=== PATIENT | female | born 1980 | race Caucasian/White ===

== ENCOUNTER 2020-05-03 15:50 | Emergency (ER) | payer OTHER ==
[~2020-05-03 15:50] MED LIST: HYDROmorphone 1 MG/ML Syringe IVPUSH ONE; Ondansetron 4 MG/2 ML SDV IVPUSH ONE; Sodium Chloride 0.9% 10 ML Syringe FLUSH PRN
--- NOTE | 2020-05-03 16:08 | EDM.PDOC ---
"ED HPI GENERAL MEDICAL PROBLEM - General Chief Complaint: Abdominal Pain Time Seen by Provider: 05/03/20 15:59 Source of Information: Reports: Patient, RN, RN Notes Reviewed History Limitations: Reports: No Limitations - History of Present Illness INITIAL COMMENTS - FREE TEXT/NARRATIVE: Patient presents to ED via personal vehicle with complaints of RLQ pain. She states the pain began about 1130 this morning as a dull ache which continued to progress to a sharp stabbing pain over the course of several hours. She denies experiencing pain like this before. It does not radiate and is isolated to her RLQ. She denies nausea, vomiting, fevers, shaking chills, or recent illness. She denies hematuria, dysuria, melena, or changes to bowel or bladder habits. She denies any recent changes to her diet. The patient states she has not taken any medications to try to alleviate this pain, and notes it worsens when she applies pressure to the area. Patient reports she is on Depo Provera with a LMP of 10/5 Right Lower Abdomen Pain Score (Numeric/FACES): 9 - Related Data Allergies Allergy/AdvReac Type Severity Reaction Status Date / Time No Known Allergies Allergy Verified 05/03/20 16:33 Home Meds: Home Meds . [No Known Home Meds] 05/03/20 [History] ED ROS GENERAL - Review of Systems Review Of Systems: Comprehensive ROS is negative, except as noted in HPI. ED EXAM, GI/ABD - Physical Exam Exam: See Below Exam Limited By: No Limitations General Appearance: Alert, Moderate Distress Head: Atraumatic, Normocephalic Neck: Normal Inspection, Supple, Non-Tender, Full Range of Motion Respiratory/Chest: No Respiratory Distress, Lungs Clear, Normal Breath Sounds, No Accessory Muscle Use, Chest Non-Tender Cardiovascular: Normal Peripheral Pulses, Regular Rate, Rhythm, No Edema, No Gallop, No JVD, No Murmur, No Rub GI/Abdominal Exam: Soft, No Distention, No Mass, Guarding, Rebound, Tender (To right lower quadrant), Abnormal Bowel Sounds (Hyperactive ) (Female) Exam: Deferred Rectal (Female) Exam: Deferred Back Exam: Normal Inspection, Full Range of Motion. No: CVA Tenderness (L), CVA Tenderness (R) Neurological: Alert, Oriented, CN II-XII Intact, Normal Cognition, No Motor/Sensory Deficits Skin Exam: Warm, Dry, Intact, Normal Color Course - Vital Signs Last Recorded V/S: Last Vital Signs Temp 98 F 05/03/20 15:49 Pulse 78 05/03/20 15:49 Resp 20 05/03/20 15:49 BP 150/85 H 05/03/20 15:49 Pulse Ox 100 05/03/20 15:49 - Orders/Labs/Meds Orders: Active Orders 24 hr Category Date Time Status Peripheral IV Care [RC] . DIRECTED Care 05/03/20 15:45 Active Ketorolac [Toradol] Med 05/03/20 17:16 Once 30 mg IVPUSH ONETIME ONE Sodium Chloride 0.9% [Saline Flush] Med 05/03/20 15:44 Active 10 ml FLUSH ASDIRECTED PRN Peripheral IV Insertion Adult [OM.PC] Stat Oth 05/03/20 15:45 Ordered Medication Orders Ketorolac Tromethamine (Toradol) 30 mg IVPUSH ONETIME ONE Stop: 05/03/20 17:17 Sodium Chloride (Saline Flush) 10 ml FLUSH ASDIRECTED PRN PRN Reason: Keep Vein Open Labs: Laboratory Tests 05/03/20 05/03/20 05/03/20 Range/Units 15:45 15:45 16:38 WBC 8.1 (5.0-10.0) 10^3/uL RBC 4.69 (4.2-5.4) 10^6/uL Hgb 15.1 (12.0-16.0) g/dL Hct 44.2 (37.0-47.0) % MCV 94.2 (80-100) fL MCH 32.2 (27.0-34.0) pg MCHC 34.2 (33.0-35.0) g/dL Plt Count 255 (150-450) 10^3/uL Neut % (Auto) 49.8 (42.2-75.2) % Lymph % (Auto) 35.5 (20.5-50.1) % Vernon % (Auto) 10.4 H (2-8) % Eos % (Auto) 4.1 H (1.0-3.0) % Baso % (Auto) 0.2 (0.0-1.0) % Sodium 142 (136-145) mmol/L Potassium 3.7 (3.5-5.1) mmol/L Chloride 105 (98-107) mmol/L Carbon Dioxide 25 (21-32) mmol/L Anion Gap 15.7 H (7-13) mEq/L BUN 13 (7-18) mg/dL Creatinine 0.87 (0.55-1.02) mg/dL Est Cr Clr Drug Dosing TNP Estimated GFR (MDRD) > 60 BUN/Creatinine Ratio 14.9 (No establ ref range) Glucose 86 (74-99) mg/dL Calcium 9.5 (8.5-10.1) mg/dL Total Bilirubin 0.7 (0.2-1.0) mg/dL AST 18 (15-37) U/L ALT 27 (14-59) U/L Alkaline Phosphatase 71 (46-116) U/L Total Protein 7.6 (6.4-8.2) g/dL Albumin 4.4 (3.4-5.0) g/dL Globulin 3.2 Albumin/Globulin Ratio 1.4 Urine Color (YELLOW) Urine Appearance (CLEAR) Urine pH (5.0-9.0) Ur Specific Superior (1.005-1.030) Urine Protein (NEGATIVE) Urine Glucose (UA) (NEGATIVE) Urine Ketones (NEGATIVE) Urine Occult Blood (NEGATIVE) Urine Nitrite (NEGATIVE) Urine Bilirubin (NEGATIVE) Urine Urobilinogen (0.2-1.0) mg/dL Ur Leukocyte Esterase (NEGATIVE) Urine HCG, Qual Negative 05/03/20 Range/Units 16:38 WBC (5.0-10.0) 10^3/uL RBC (4.2-5.4) 10^6/uL Hgb (12.0-16.0) g/dL Hct (37.0-47.0) % MCV (80-100) fL MCH (27.0-34.0) pg MCHC (33.0-35.0) g/dL Plt Count (150-450) 10^3/uL Neut % (Auto) (42.2-75.2) % Lymph % (Auto) (20.5-50.1) % Vernon % (Auto) (2-8) % Eos % (Auto) (1.0-3.0) % Baso % (Auto) (0.0-1.0) % Sodium (136-145) mmol/L Potassium (3.5-5.1) mmol/L Chloride (98-107) mmol/L Carbon Dioxide (21-32) mmol/L Anion Gap (7-13) mEq/L BUN (7-18) mg/dL Creatinine (0.55-1.02) mg/dL Est Cr Clr Drug Dosing Estimated GFR (MDRD) BUN/Creatinine Ratio (No establ ref range) Glucose (74-99) mg/dL Calcium (8.5-10.1) mg/dL Total Bilirubin (0.2-1.0) mg/dL AST (15-37) U/L ALT (14-59) U/L Alkaline Phosphatase (46-116) U/L Total Protein (6.4-8.2) g/dL Albumin (3.4-5.0) g/dL Globulin Albumin/Globulin Ratio Urine Color Yellow (YELLOW) Urine Appearance Clear (CLEAR) Urine pH 6.5 (5.0-9.0) Ur Specific Superior 1.020 (1.005-1.030) Urine Protein Negative (NEGATIVE) Urine Glucose (UA) Negative (NEGATIVE) Urine Ketones 15 H (NEGATIVE) Urine Occult Blood Negative (NEGATIVE) Urine Nitrite Negative (NEGATIVE) Urine Bilirubin Negative (NEGATIVE) Urine Urobilinogen 0.2 (0.2-1.0) mg/dL Ur Leukocyte Esterase Negative (NEGATIVE) Urine HCG, Qual Meds: Medications Generic Name Dose Route Start Last Admin Trade Name Freq PRN Reason Stop Dose Admin Ketorolac Tromethamine 30 mg 05/03/20 17:16 Toradol IVPUSH 05/03/20 17:17 ONETIME ONE Sodium Chloride 10 ml 05/03/20 15:44 Saline Flush FLUSH ASDIRECTED PRN Keep Vein Open Discontinued Medications Generic Name Dose Route Start Last Admin Trade Name Freq PRN Reason Stop Dose Admin Hydromorphone HCl 1 mg 05/03/20 15:42 05/03/20 15:47 Dilaudid IVPUSH 05/03/20 15:43 1 mg ONETIME ONE Administration Ondansetron HCl 4 mg 05/03/20 15:42 05/03/20 15:54 Zofran IVPUSH 05/03/20 15:43 4 mg ONETIME ONE Administration - Radiology Interpretation Free Text/Narrative:: [facility] [place] [facility] Final Radiology Report Call: [phone] assistance Online chat: [email or web address] Name: RITIKA TRAORE Age: 39Years F Date: 05/03/2020 SSN: -- : 1980 Study: CT ABDOMEN PELVIS WO CONT Requesting Physician: Noris Taylor Images: [id number] Addl Studies: Provided Clinical History: RLQ pain Contrast: Without Contrast Medium: Contrast Amount: Contrast Method: Page 1 of 2 PROCEDURE INFORMATION: Exam: CT Abdomen And Pelvis Without Contrast Exam date and time: 05/03/2020 3:56 PM Age: 39 years old Clinical indication: Abdominal pain; Additional info: Rlq pain TECHNIQUE: Imaging protocol: Computed tomography of the abdomen and pelvis without contrast. Radiation optimization: All CT scans at this facility use at least one of these dose optimization techniques: automated exposure control; mA and/or kV adjustment per patient size (includes targeted exams where dose is matched to clinical indication); or iterative reconstruction. COMPARISON: No relevant prior studies available. FINDINGS: Liver: Normal. No mass. Gallbladder and bile ducts: Normal. No calcified stones. No ductal dilation. Pancreas: Normal. No ductal dilation. Spleen: Normal. No splenomegaly. Adrenals: Normal. No mass. Kidneys and ureters: No hydroureter 3 mm calculus in or adjacent to distal right ureter, see image 151 series 6. . No hydronephrosis. Stomach and bowel: Unremarkable. No obstruction. No mucosal thickening. Appendix: No evidence of appendicitis. Intraperitoneal space: Unremarkable. No free air. No significant fluid collection. Vasculature: Unremarkable. No abdominal aortic aneurysm. Lymph nodes: Unremarkable. No enlarged lymph nodes. Urinary bladder: Unremarkable as visualized. Reproductive: Unremarkable as visualized. RITIKA TRAORE | Final Radiology Report CONFIDENTIALITY STATEMENT This report is intended only for use by the referring physician, and only in accordance with law. If you received this in error, call [phone]. Page 2 of 2 Bones/joints: Unremarkable. No acute fracture. Soft tissues: Unremarkable. IMPRESSION: Nonobstructive distal right urolithiasis versus incidental phlebolith. Thank you for allowing us to participate in the care of your patient. Dictated and Authenticated by: Lei Lofton MD 05/03/2020 4:59 PM Central Time ([place] & [place]) - Re-Assessments/Exams Free Text/Narrative Re-Assessment/Exam: 05/03/20 17:27 Dr. Matta updated on right renal calculi and treatment with Flomax, Zofran, and Toradol, as well as instructions for patient to follow up with primary provider tomorrow or Thursday. Departure - Departure Time of Disposition: 17:17 Disposition: Home, Self-Care 01 Condition: Good Clinical Impression: Renal calculi - Discharge Information *PRESCRIPTION DRUG MONITORING PROGRAM REVIEWED*: Not Applicable *COPY OF PRESCRIPTION DRUG MONITORING REPORT IN PATIENT WAQAS: Not Applicable Instructions: Kidney Stones, [id number] Forms: ED Department Discharge Additional Instructions: Rx: Flomax 0.4mg Rx: Toradol 10mg Rx: Zofran 4 mg Drink plenty of fluids. Follow up with primary provider tomorrow or on Thursday, as able. Sepsis Event Note (ED) - Evaluation Sepsis Screening Result: No Definite Risk - Focused Exam Vital Signs: Vital Signs Temp Pulse Resp BP Pulse Ox 05/03/20 15:49 98 F 78 20 150/85 H 100 - My Orders Last 24 Hours: My Active Orders 05/03/20 17:16 Ketorolac [Toradol] 30 mg IVPUSH ONETIME ONE - Assessment/Plan Last 24 Hours: My Active Orders 05/03/20 17:16 Ketorolac [Toradol] 30 mg IVPUSH ONETIME ONE"
[2020-05-03 16:13] LABS: ANION GAP 15.7 mEq/L (7-13); CHLORIDE,CL 105 mmol/L (98-107); SODIUM,NA 142 mmol/L (136-145)
--- NOTE | 2020-05-03 17:00 | CT ---
PROCEDURE INFORMATION: Exam: CT Abdomen And Pelvis Without Contrast Exam date and time: 05/03/2020 3:56 PM Age: 39 years old Clinical indication: Abdominal pain; Additional info: Rlq pain TECHNIQUE: Imaging protocol: Computed tomography of the abdomen and pelvis without contrast. Radiation optimization: All CT scans at this facility use at least one of these dose optimization techniques: automated exposure control; mA and/or kV adjustment per patient size (includes targeted exams where dose is matched to clinical indication); or iterative reconstruction. COMPARISON: No relevant prior studies available. FINDINGS: Liver: Normal. No mass. Gallbladder and bile ducts: Normal. No calcified stones. No ductal dilation. Pancreas: Normal. No ductal dilation. Spleen: Normal. No splenomegaly. Adrenals: Normal. No mass. Kidneys and ureters: No hydroureter 3 mm calculus in or adjacent to distal right ureter, see image 151 series 6. . No hydronephrosis. Stomach and bowel: Unremarkable. No obstruction. No mucosal thickening. Appendix: No evidence of appendicitis. Intraperitoneal space: Unremarkable. No free air. No significant fluid collection. Vasculature: Unremarkable. No abdominal aortic aneurysm. Lymph nodes: Unremarkable. No enlarged lymph nodes. Urinary bladder: Unremarkable as visualized. Reproductive: Unremarkable as visualized. Bones/joints: Unremarkable. No acute fracture. Soft tissues: Unremarkable. IMPRESSION: Nonobstructive distal right urolithiasis versus incidental phlebolith.
[2020-05-03] MEDS ORDERED: Ketorolac 30 MG/ML SDV IVPUSH ONE (17:16)
== END 2020-05-03 17:46 | disposition home or self-care (01) ==
LOC: DL.ED 15:50
DX: N20.2 Calculus of kidney with calculus of ureter (principal)
CPT/HCPCS: 36415; 74176; 80053; 81003; 81025; 85025; 96374; 96375; 99284; J1170; J1885; J2405; 99283